=== PATIENT | female | born 2000 | race Caucasian/White ===

== ENCOUNTER 2023-06-02 10:19 | Emergency (ER) | payer OTHER, SELFPAY ==
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
--- NOTE | ~2023-06-02 | XR_ITS ---
EXAMINATION: XR KNEE, LEFT CLINICAL INFORMATION: Pain COMPARISON: None available. TECHNIQUE: Four views of the left knee. FINDINGS: No fracture or joint effusion. Alignment is anatomic. Joint spaces are maintained. No abnormal soft tissue calcification. XR/XR knee LT 3V IMPRESSION: No significant osseous changes to explain patient's pain symptoms.
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
[2023-06-02 10:34] VITALS: BP 115/75; PULSE 75; RESP 18; TEMP 36.9; O2SAT 98; BMI 30.5
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
[2023-06-02 12:01] VITALS: BP 116/70; PULSE 84; RESP 18; O2SAT 96
[2023-06-02] MEDS: Acetaminophen 325 MG TABLET 975 MG PO (12:14)
[2023-06-02] MEDS: Ondansetron ODT 4 MG TAB.RAPDIS TRANSLINGU (13:51)
[2023-06-02] MEDS: oxyCODONE HCl Immed Release 5 MG TABLET PO (13:51)
--- NOTE | 2023-06-02 14:09 | PC.NURSE ---
neuros intact. L. knee slight swelling/bruising; pt reports pain. cap refill <2 secs. pt reports R. shoulder/upper back pain; abrasions to L. upper arm and L. side abdomen pt denies pain to those regions. knee brace to L. knee & crutches provided for pt.
== END 2023-06-02 14:34 | disposition home or self-care (01) ==
PROVIDERS: Emergency Provider Emergency Medicine Emergency Medical Services
DX: S06.0X0A Concussion without loss of consciousness, initial encounter (principal); S83.92XA Sprain of unspecified site of left knee, initial encounter; S80.02XA Contusion of left knee, initial encounter; S00.03XA Contusion of scalp, initial encounter; S00.81XA Abrasion of other part of head, initial encounter; S10.91XA Abrasion of unspecified part of neck, initial encounter; S50.812A Abrasion of left forearm, initial encounter; V43.52XA Car driver injured in collision with other type car in traffic accident, initial encounter; W22.11XA Striking against or struck by driver side automobile airbag, initial encounter; Y93.89 Activity, other specified; Y92.410 Unspecified street and highway as the place of occurrence of the external cause; Y99.9 Unspecified external cause status
CPT/HCPCS: 70450; 72125; 73562; 99284

== ENCOUNTER 2023-06-11 09:53 | Outpatient (REF) | payer OTHER, SELFPAY | END 2023-06-11 09:54 | disposition home or self-care (01) | LOC: HO.HOSX 09:53 | PROVIDERS: Visit Provider Physician Assistant | DX: S80.02XA Contusion of left knee, initial encounter (principal); X58.XXXA Exposure to other specified factors, initial encounter; Y93.9 Activity, unspecified; Y92.9 Unspecified place or not applicable; Y99.9 Unspecified external cause status | CPT/HCPCS: 73560; 73565 ==

== ENCOUNTER 2023-06-11 11:56 | Outpatient (AMB) | payer OTHER, SELFPAY ==
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
[2023-06-11 12:43] VITALS: BMI 30.5
== END 2023-06-11 13:41 | disposition home or self-care (01) ==
PROVIDERS: Visit Provider Physician Assistant
DX: S80.02XA Contusion of left knee, initial encounter (principal)
CPT/HCPCS: 99204

== ENCOUNTER 2023-06-21 10:14 | Outpatient (AMB) | payer OTHER, SELFPAY ==
[2023-06-21 10:20] VITALS: BMI 30.5
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
== END 2023-06-21 11:00 | disposition home or self-care (01) ==
PROVIDERS: Visit Provider Orthopaedic Surgery
DX: S80.02XA Contusion of left knee, initial encounter (principal)
CPT/HCPCS: 99213

== ENCOUNTER → 2023-06-21 10:14 | Outpatient (BNVA) | payer OTHER, SELFPAY | PROVIDERS: Visit Provider Orthopaedic Surgery ==

== ENCOUNTER 2023-07-19 10:48 | Outpatient (AMB) | payer OTHER, SELFPAY ==
[2023-07-19 10:53] VITALS: BMI 30.5
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
== END 2023-07-19 11:44 | disposition home or self-care (01) ==
PROVIDERS: Visit Provider Orthopaedic Surgery
DX: S80.02XA Contusion of left knee, initial encounter (principal); V49.40XA Driver injured in collision with unspecified motor vehicles in traffic accident, initial encounter; Z04.3 Encounter for examination and observation following other accident
CPT/HCPCS: 99213

== ENCOUNTER → 2023-07-19 10:48 | Outpatient (BNVA) | payer OTHER, SELFPAY | PROVIDERS: Visit Provider Orthopaedic Surgery ==

== ENCOUNTER 2023-08-01 12:34 | Emergency (ER) | payer OTHER, SELFPAY ==
[2023-08-01 12:58] VITALS: BP 102/69; PULSE 80; RESP 18; TEMP 36.4; O2SAT 99; BMI 34.8
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
== END 2023-08-01 13:24 | disposition home or self-care (01) ==
LOC: HO.ED 13:14
PROVIDERS: Emergency Provider Emergency Medicine
DX: S80.02XA Contusion of left knee, initial encounter (principal); W22.8XXA Striking against or struck by other objects, initial encounter; Y93.9 Activity, unspecified; Y92.9 Unspecified place or not applicable; Y99.9 Unspecified external cause status; M25.562 Pain in left knee
CPT/HCPCS: 99282

== ENCOUNTER 2023-08-09 10:49 | Outpatient (AMB) | payer OTHER, SELFPAY ==
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
== END 2023-08-09 11:57 | disposition home or self-care (01) ==
PROVIDERS: Visit Provider Orthopaedic Surgery
DX: S80.02XA Contusion of left knee, initial encounter (principal); M70.52 Other bursitis of knee, left knee; Z04.3 Encounter for examination and observation following other accident
CPT/HCPCS: 20610; 99214

== ENCOUNTER → 2023-08-09 10:49 | Outpatient (BNVA) | payer OTHER, SELFPAY | PROVIDERS: Visit Provider Orthopaedic Surgery | DX: M70.52 Other bursitis of knee, left knee (principal); S80.02XD Contusion of left knee, subsequent encounter | CPT/HCPCS: 20610; J0665; J1100 ==

== ENCOUNTER 2023-08-29 19:30 | Emergency (ER) | payer SELFPAY | END 2023-08-29 19:55 | disposition left against medical advice (07) | LOC: HO.ED 19:54 | PROVIDERS: Emergency Provider Emergency Medicine | DX: L29.2 Pruritus vulvae (principal) ==

== ENCOUNTER 2023-08-30 11:18 | Outpatient (AMB) | payer OTHER, SELFPAY ==
[2023-08-30 11:21] VITALS: BMI 34.7
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
== END 2023-08-30 11:45 | disposition home or self-care (01) ==
PROVIDERS: Visit Provider Orthopaedic Surgery
DX: S80.02XA Contusion of left knee, initial encounter (principal); M70.52 Other bursitis of knee, left knee
CPT/HCPCS: 99213

== ENCOUNTER → 2023-08-30 11:18 | Outpatient (BNVA) | payer OTHER, SELFPAY | PROVIDERS: Visit Provider Orthopaedic Surgery ==

== ENCOUNTER 2023-10-25 14:09 | Outpatient (AMB) | payer OTHER, SELFPAY ==
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
[2023-10-25 14:17] VITALS: BMI 34.7
== END 2023-10-25 14:38 | disposition home or self-care (01) ==
PROVIDERS: Visit Provider Physician Assistant
DX: S80.02XA Contusion of left knee, initial encounter (principal); M70.52 Other bursitis of knee, left knee
CPT/HCPCS: 99214

== ENCOUNTER → 2023-10-25 14:09 | Outpatient (BNVA) | payer OTHER, SELFPAY | PROVIDERS: Visit Provider Physician Assistant ==

== ENCOUNTER 2023-12-06 12:19 | Outpatient (AMB) | payer OTHER, SELFPAY ==
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
== END 2023-12-06 13:04 | disposition home or self-care (01) ==
PROVIDERS: Visit Provider Physician Assistant
DX: S80.02XD Contusion of left knee, subsequent encounter (principal); M70.52 Other bursitis of knee, left knee
CPT/HCPCS: 20610; 99213

== ENCOUNTER → 2023-12-06 12:19 | Outpatient (BNVA) | payer OTHER, SELFPAY | PROVIDERS: Visit Provider Physician Assistant | DX: S80.02XD Contusion of left knee, subsequent encounter (principal); M70.52 Other bursitis of knee, left knee | CPT/HCPCS: 20610; J0665; J1100 ==

== ENCOUNTER 2023-12-17 14:18 | Outpatient (AMB) | payer OTHER, SELFPAY ==
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
== END 2023-12-17 14:53 | disposition home or self-care (01) ==
PROVIDERS: Visit Provider Orthopaedic Surgery
DX: M23.92 Unspecified internal derangement of left knee (principal)
CPT/HCPCS: 99213

== ENCOUNTER → 2023-12-17 14:18 | Outpatient (BNVA) | payer OTHER, SELFPAY | PROVIDERS: Visit Provider Physician Assistant ==